=== PATIENT | female | born 1965 | race Caucasian/White ===

== ENCOUNTER 2019-09-19 12:08 | Outpatient (CLI) | payer BC ==
[~2019-09-19 12:08] MED LIST: AMLO-150 PO; ASPI81TA45 PO; ATOR20TA37 PO; ATOR40TA78 PO; CYCL-259 PO; INSU100I28 SQ-INSULIN; LEVO50TA5 PO; LISI-424 PO; MECL-101 PO; METF500T PO; RANI150T4 PO; TRAM50TA2 PO; WARF7.5T46 PO
[2019-09-26] MEDS ORDERED: WARF7.5T46 PO ×2 (10:50)
[2019-09-26] MEDS ORDERED: SUMA50TA4 PO (10:55)
[2019-09-26] MEDS ORDERED: POTA20TA14 PO (10:55)
[2019-09-26] MEDS ORDERED: ATOR20TA PO (10:55)
[2019-09-26] MEDS ORDERED: ACET-1600 PO (10:55)
[2019-09-26] MEDS ORDERED: BECL10.62 INH (10:57)
[2019-09-26] MEDS ORDERED: ALBU18HF INH (10:59)
== END 2019-09-19 23:59 | disposition home or self-care (01) ==
LOC: CFH 12:08
PROVIDERS: ATTEND Internal Medicine Cardiovascular Disease
DX: I35.1 Nonrheumatic aortic (valve) insufficiency (principal); I51.89 Other ill-defined heart diseases
CPT/HCPCS: 78452; 93017; 93306; A9502

== ENCOUNTER → 2020-02-11 | Outpatient (CLI) | payer BC ==
[~2020-02-11] MED LIST changes: +ACET-1600 PO; +ALBU18HF INH; +ATOR20TA PO; +BECL10.62 INH; +POTA20TA14 PO; +SUMA50TA4 PO
== END | disposition home or self-care (01) ==
LOC: CFH 07:20
PROVIDERS: ATTEND Registered Nurse
DX: R07.89 Other chest pain (principal); I35.9 Nonrheumatic aortic valve disorder, unspecified
CPT/HCPCS: 93306

== ENCOUNTER 2020-09-08 13:18 | Outpatient (CLI) | payer BC ==
[~2020-09-08 13:18] MED LIST changes: -CYCL-259 PO; +CYCL10TA2 PO; -LISI-424 PO; +LISI-606 PO
== END 2020-09-08 23:59 | disposition home or self-care (01) ==
LOC: CFH 13:18
PROVIDERS: ATTEND Internal Medicine Cardiovascular Disease
DX: I42.9 Cardiomyopathy, unspecified (principal)
CPT/HCPCS: 93306

== ENCOUNTER 2021-02-03 08:17 | Outpatient (CLI) | payer BC | END 2021-02-03 23:59 | disposition home or self-care (01) | LOC: CFH 08:17 | PROVIDERS: ATTEND Internal Medicine Cardiovascular Disease | DX: I08.2 Rheumatic disorders of both aortic and tricuspid valves (principal); I11.9 Hypertensive heart disease without heart failure; I42.9 Cardiomyopathy, unspecified | CPT/HCPCS: 93306 ==